=== PATIENT | female | born 1970 | race Hispanic/Latino ===

== ENCOUNTER 2017-10-07 18:03 | Observation (INO) | payer OTHER ==
[~2017-10-07] VITALS: Ht 154.9 cm; Wt 58.7 kg
[2017-10-07 19:06] LABS: BASOPHILS % 0.4 % (0.0-1.0); EOSINOPHILS % 0.4 % (0.0-6.0); LYMPHOCYTES % 17.9 % (18.0-39.1); MEAN CORPUSCULAR HGB CONC 33.3 g/dL (31-35); MEAN CORPUSCULAR VOLUME 78.1 fL (81-99); MONOCYTES # (AUTO) 0.5 (0.2-0.8); MONOCYTES % 8.3 % (4.4-11.3); NEUTROPHILS # (AUTO) 4.1 (2.1-6.9); NEUTROPHILS % 72.3 % (38.7-80.0); PLATELET COUNT 151 x10e3/uL (140-360); RED BLOOD COUNT 2.42 x10e6/uL (3.6-5.1); RED CELL DISTRIBUTION WIDTH 20.8 % (11.7-14.4)
[2017-10-07 19:17] LABS: ANION GAP 12.5 mmol/L (8-16); BLOOD UREA NITROGEN 10 mg/dL (7-26); BUN/CREATININE RATIO 16 (6-25); CALCIUM 8.3 mg/dL (8.4-10.2); CARBON DIOXIDE 20 mmol/L (22-29); CHLORIDE 107 mmol/L (98-107); CREATININE, SERUM 0.63 mg/dL (0.57-1.11); EST GLOMERULAR FILTRATION RATE > 60 ML/MIN (60-); GLUCOSE 107 mg/dL (74-118); POTASSIUM 3.5 mmol/L (3.5-5.1); SODIUM 136 mmol/L (136-145)
[2017-10-07 19:18] LABS: HEMATOCRIT 18.9 % (34.2-44.1); HEMOGLOBIN 6.3 g/dL (12.0-16.0)
[2017-10-07] MEDS ORDERED: SODIUM CHLORIDE 0.9% 250ML 250 ML IV ONE (19:30)
[2017-10-07] MEDS ORDERED: ACETAMINOPHEN 325 MG TAB PO PRN (19:45)
[2017-10-07] MEDS ORDERED: SODIUM CHLORIDE FLUSH 10 ML SYR INJ PRN (19:45)
[2017-10-07] MEDS ORDERED: ONDANSETRON HCL INJ 2 MG/ML VIAL IV PRN (19:45)
[2017-10-07 20:00] VITALS: BP 156/70
[2017-10-07 22:18] VITALS: BP 156/70
[2017-10-08] VITALS: BP 134/73
--- NOTE | 2017-10-08 00:41 | History and Physical ---
PRIMARY CARE PHYSICIAN: Patient does not recall. CHIEF COMPLAINT: Excessive vaginal bleed. HISTORY OF PRESENT ILLNESS: A 46-year-old woman with a history of menometrorrhagia occurring about a year ago, went to a revit drafter, details of that unknown. She stated she received transfusion. Now developing similar symptoms. Patient has spotting between menses and also heavy bleeding for the past 9 days. It is unclear as to how many pads she has been using. All history was provided by the at bedside. Patient has suprapubic discomfort, but no other symptoms. PAST MEDICAL HISTORY: Menometrorrhagia, menorrhagia. PAST SURGICAL HISTORY: times 2. ALLERGIES: PER ELECTRONIC MEDICAL RECORD. SOCIAL: Patient is . She has 2 children. No alcohol, illicits, or cigarette. MEDICATIONS: Per electronic medical record. REVIEW OF SYSTEMS: Denies any dizziness, chest pain, shortness of breath, fever, chills, nausea, vomiting, diarrhea, or back pain. PHYSICAL EXAMINATION VITAL SIGNS: Reviewed. GENERAL: A tired-appearing woman, resting in bed. HEENT: Anicteric. Pupils reactive to light. No lesions. CARDIOVASCULAR: Normal S1 and S2. LUNGS: Moderate breath sounds. ABDOMEN: Soft and nondistended. Suprapubic region is tender to palpation. EXTREMITIES: No edema or calf tenderness. NEUROLOGICAL: Alert and oriented times 3. Moving all extremities. SKIN: Dry. PSYCHIATRIC: Normal affect. LABS: Reviewed. MEDICATIONS: Reviewed. ASSESSMENT: This is a 46-year-old woman admitted with 1. Menometrorrhagia. 2. Severe microcytic anemia. 3. Metabolic acidosis. PLAN 1. Three units packed red blood cells. 2. Patient has agreed to follow up with her revit drafter tomorrow in the turnaround engineer for further evaluation. 3. Re-assess blood counts after transfusion. 4. We will use SCD for DVT prophylaxis and we will use Pepcid 20 b.i.d. for GI prophylaxis. 5. Continue medroxyprogesterone. Job#: [id number]
[2017-10-08 04:00] VITALS: BP 105/71
[2017-10-08 05:01] VITALS: BP 134/73
[2017-10-08 07:15] VITALS: BP 111/57
[2017-10-08 07:30] VITALS: BP 111/57
[2017-10-08] MEDS ORDERED: FAMOTIDINE 20 MG TAB PO SCH (07:30)
[2017-10-08] MEDS ORDERED: MEDROXYPROGEST2.5 MG PO (08:02)
[2017-10-08] MEDS ORDERED: FAMOTIDINE20 MG PO (08:02)
[2017-10-08 08:19] LABS: BASOPHILS % 0.3 % (0.0-1.0); EOSINOPHILS % 0.5 % (0.0-6.0); HEMATOCRIT 31.9 % (34.2-44.1); HEMOGLOBIN 11.2 g/dL (12.0-16.0); LYMPHOCYTES # (AUTO) 1.5 (1.0-3.2); LYMPHOCYTES % 24.9 % (18.0-39.1); MEAN CORPUSCULAR HEMOGLOBIN 28.4 pg (28-32); MEAN CORPUSCULAR HGB CONC 35.1 g/dL (31-35); MEAN CORPUSCULAR VOLUME 80.8 fL (81-99); MONOCYTES # (AUTO) 0.6 (0.2-0.8); NEUTROPHILS # (AUTO) 3.9 (2.1-6.9); NEUTROPHILS % 63.3 % (38.7-80.0); PLATELET COUNT 121 x10e3/uL (140-360); RED BLOOD COUNT 3.95 x10e6/uL (3.6-5.1); RED CELL DISTRIBUTION WIDTH 17.5 % (11.7-14.4)
[2017-10-08 08:37] LABS: ALANINE AMINOTRANSFERASE 20 IU/L (0-55); ALBUMIN 3.1 g/dL (3.5-5.0); ALBUMIN/GLOBULIN RATIO 1.1 (0.8-2.0); ALKALINE PHOSPHATASE 75 IU/L (40-150); ANION GAP 9.8 mmol/L (8-16); BLOOD UREA NITROGEN 7 mg/dL (7-26); BUN/CREATININE RATIO 11 (6-25); CALCIUM 8.3 mg/dL (8.4-10.2); CARBON DIOXIDE 22 mmol/L (22-29); CHLORIDE 110 mmol/L (98-107); CREATININE, SERUM 0.63 mg/dL (0.57-1.11); EST GLOMERULAR FILTRATION RATE > 60 ML/MIN (60-); GLUCOSE 93 mg/dL (74-118); POTASSIUM 3.8 mmol/L (3.5-5.1); SODIUM 138 mmol/L (136-145)
[2017-10-08] MEDS ORDERED: MEDROXYPROGESTERONE ACETATE 2.5 MG TAB PO SCH (09:00)
--- NOTE | 2017-10-08 09:21 | Discharge Summary ---
PRINCIPAL DIAGNOSES 1. Menometrorrhagia. 2. Severe microcytic anemia, status post 3 units of packed red blood cell transfusion. 3. Metabolic acidosis. SECONDARY DIAGNOSIS: Menometrorrhagia. CHIEF COMPLAINT: Heavy vaginal bleeding. HISTORY OF PRESENT ILLNESS: This is a 46-year-old woman with heavy vaginal bleeding. Please refer to the H and P for further details. HOSPITAL COURSE: The patient has been having menometrorrhagia, which she has had in the past. She received 3 units of packed red blood cells transfusion. Has an appointment this morning with a nurse practitioner adult who will manage the problem. At this time, the patient is stable. Hemoglobin has improved. It was initially 6.3, now 11.2. She is currently appropriate for discharge with followup. DISCHARGE MEDICATIONS: Per electronic medical record and include medroxyprogesterone. FOLLOWUP: She will follow up with a nurse practitioner adult this morning in the clinic. CHINTAN DUARTE MD Job#: [id number]
== END 2017-10-08 09:44 | disposition home or self-care (01) ==
LOC: ER 18:03 → ERHOLD 19:37 → MED/SURG3 20:34
PROVIDERS: ADMIT Internal Medicine; ATTEND Internal Medicine
DX: N92.1 Excessive and frequent menstruation with irregular cycle (principal); N93.8 Other specified abnormal uterine and vaginal bleeding; E83.51 Hypocalcemia; E87.2 Acidosis; D50.9 Iron deficiency anemia, unspecified
CPT/HCPCS: 36415 ×2; 36430 ×3; 80048; 80053; 84702; 85025 ×2; 86850; 86900; 86920; G0378 ×2; J7050; P9016 ×2

== ENCOUNTER 2017-10-14 15:10 | Emergency (ER) | payer OTHER ==
[~2017-10-14] VITALS: Ht 154.9 cm; Wt 58.5 kg
[~2017-10-14 15:10] MED LIST: FAMOTIDINE20 MG PO; MEDROXYPROGEST2.5 MG PO
[2017-10-14 15:42] LABS: BASOPHILS % 0.2 % (0.0-1.0); EOSINOPHILS # (AUTO) 0.1 (0.0-0.4); EOSINOPHILS % 0.8 % (0.0-6.0); HEMATOCRIT 23.4 % (34.2-44.1); HEMOGLOBIN 8.1 g/dL (12.0-16.0); LYMPHOCYTES # (AUTO) 1.2 (1.0-3.2); LYMPHOCYTES % 19.9 % (18.0-39.1); MEAN CORPUSCULAR HGB CONC 34.6 g/dL (31-35); MONOCYTES # (AUTO) 0.6 (0.2-0.8); MONOCYTES % 9.4 % (4.4-11.3); NEUTROPHILS # (AUTO) 4.3 (2.1-6.9); NEUTROPHILS % 69.1 % (38.7-80.0); PLATELET COUNT 118 x10e3/uL (140-360); RED BLOOD COUNT 2.89 x10e6/uL (3.6-5.1); RED CELL DISTRIBUTION WIDTH 17.6 % (11.7-14.4)
[2017-10-14 16:09] LABS: INR 1.04; PROTHROMBIN TIME 12.8 seconds (11.9-14.5)
[2017-10-14 16:10] LABS: PARTIAL THROMBOPLASTIN TIME 26.6 seconds (23.8-35.5)
[2017-10-14 16:44] VITALS: BP 123/79
== END 2017-10-14 16:53 | disposition home or self-care (01) ==
LOC: ER 15:10
DX: N93.8 Other specified abnormal uterine and vaginal bleeding (principal); R42 Dizziness and giddiness; R51 Headache; R11.2 Nausea with vomiting, unspecified; D64.9 Anemia, unspecified
CPT/HCPCS: 36415; 85025; 85610; 85730; 86900; 99284

== ENCOUNTER 2018-08-11 15:56 | Emergency (ER) | payer OTHER ==
[~2018-08-11] VITALS: Ht 149.9 cm; Wt 57.2 kg
[2018-08-11] MEDS ORDERED: IBUPROFEN 600 MG TAB PO ONE (18:00)
[2018-08-11 18:41] LABS: PREGNANCY TEST, URINE NEGATIVE (NEGATIVE)
[2018-08-11 18:49] LABS: BILIRUBIN,URINE NEGATIVE (NEGATIVE); CLARITY,URINE CLEAR (CLEAR); COLOR,URINE COLORLESS (YELLOW); KETONES,URINE NEGATIVE (NEGATIVE); LEUKOCYTE ESTERASE ,URINE NEGATIVE (NEGATIVE); NITRITE,URINE NEGATIVE (NEGATIVE); PROTEIN,URINE DIPSTICK NEGATIVE (NEGATIVE); URINE UROBILINOGEN 0.2 mg/dL (0.2 - 1)
[2018-08-11 18:51] LABS: EPITHELIAL CELLS,URINE FEW /LPF; WBC,URINE (MAN) 0-5 /HPF (0-5)
[2018-08-11] MEDS ORDERED: PYRIDIUM200 MG PO (19:31)
[2018-08-11] MEDS ORDERED: CEFDINIR300 MG PO (19:31)
[2018-08-11 20:25] VITALS: BP 158/97
== END 2018-08-11 20:29 | disposition home or self-care (01) ==
LOC: ER 15:56
DX: R30.0 Dysuria (principal); N93.9 Abnormal uterine and vaginal bleeding, unspecified; N30.90 Cystitis, unspecified without hematuria
CPT/HCPCS: 81001; 81025; 87086; 99283